=== PATIENT | male | born 2000 | race Caucasian/White ===

== ENCOUNTER 2021-12-05 19:28 | Emergency (ER) | payer BC ==
[2021-12-05 19:48] VITALS: O2SAT 98
--- NOTE | 2021-12-05 20:35 | ERPHSYRPT ---
- History of Present Illness Time Seen by Provider: 12/05/21 19:38 Source: patient Exam Limitations: no limitations Patient Subjective Stated Complaint: pt [place] and the board flew up and hit him in the head. Triage Nursing Assessment: pt is alert and oriented and states he has a pain level of 2/10. pt has a laceration on back of head. Physician History: 31-year-old male presented in the ER with chief complaint of laceration scalp/head injury after he was in a water sport and board flew off and hit his head. No loss of consciousness. Complaining of dull aching headache in the occipital area and feels a little dizzy and lightheaded. No ENT bleed. No neck pain. No injury anywhere else. Up-to-date with tetanus. Occurred: just prior to arrival Severity: moderate Head Injury Location: occipital Method of Injury: other Loss of Consciousness: no loss of consciousness Associated Symptoms: headaches Allergies/Adverse Reactions: No Known Drug Allergies Allergy (Unverified 12/05/21 19:48) Immunizations Up to Date: Yes Travel Risk - International Travel Have you traveled outside of the country in past 3 weeks: No - Coronavirus Screening Are you exhibiting any of the following symptoms?: No Symptoms: Fever - Vaccine Status Have you recieved a Covid-19 vaccination: No - Review of Systems Constitutional: No Symptoms Eyes: No Symptoms Ears, Nose, & Throat: No Symptoms Respiratory: No Symptoms Cardiac: No Symptoms Abdominal/Gastrointestinal: No Symptoms Musculoskeletal: Injury Skin: Skin Lesions Neurological: Headache Psychological: No Symptoms Endocrine: No Symptoms Hematologic/Lymphatic: No Symptoms Immunological/Allergic: No Symptoms - Past Medical History Pertinent Past Medical History: No - Past Surgical History Past Surgical History: Yes Other Surgical History: knee surgery - Social History Smoking Status: Current every day smoker Drug Use: marijuana - Nursing Vital Signs Nursing Vital Signs: Initial Vital Signs Temperature 98.0 F 12/05/21 19:34 Pulse Rate 85 12/05/21 19:34 Respiratory Rate 18 12/05/21 19:34 Blood Pressure 116/65 12/05/21 19:34 O2 Sat by Pulse Oximetry 98 12/05/21 19:34 Pain Scale Pain Intensity 2 - Yrn Coma Score Best Eye Response (Yrn): (4) open spontaneously Best Verbal Response (Ward): (5) oriented Best Motor Response (Ward): (6) obeys commands Yrn Total: 15 - Physical Exam General Appearance: no apparent distress, alert Head Injury: lacerations (V-shaped laceration 2.5 cm in the right occipital parietal area.), swelling, tenderness Eye Exam: bilateral eye: normal inspection, PERRL, EOMI ENT Exam: airway nml, No evidence of ENT injury Neck Exam: supple, trachea midline, full range of motion, normal alignment, normal inspection, No focal neuro deficit, No muscle spasm, No paraspinous muscle tender Cardiovascular/Respiratory Exam: chest non-tender, normal breath sounds, regular rate/rhythm Back Exam: normal inspection, normal range of motion Extremity Exam: non-tender, normal range of motion, normal inspection, normal capillary refill Mental Status Exam: alert, oriented x 3, 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 Exam: normal hearing, normal speech, PERRL Coordination/Gait Exam: normal finger to nose, normal gait, normal cerebellar function Motor/Sensory Exam: no motor deficit, no sensory deficit, no pronator drift, negative Babinski's sign Skin Exam: normal color SpO2 Interpretation: normal SpO2: 98 O2 Delivery: Room Air Procedures - Laceration/Wound Repair Occipital Time of Procedure: 20:38 Wound Location: head Wound Length (cm): 2.5 Wound's Depth, Shape: irregular Wound Explored: clean Irrigated: Yes Hibiclens Prep: Yes Wound Repaired With: [place] Number of Sutures: 3 Ordered Tests: Active Orders 24 hr Category Date Time Status HEAD WITHOUT CONTRAST [CT] Stat Exams 12/05/21 20:11 Taken - Progress Progress: improved, re-examined Progress Note: 12/05/21 20:39 Does not want anything for pain. CT head is negative. Laceration is repaired with stapler. Outpatient follow-up recommended. Discussed signs symptoms of worsening/head injury needing return to ER which he seems understanding. Counseled pt/family regarding: diagnosis, need for follow-up, rad results - Departure Departure Disposition: Home Clinical Impression: Occipital scalp laceration Condition: Stable Critical Care Time: No Referrals: DOCTOR,NO FAMILY [Primary Care Provider] - Follow up/PCP as directed MARYAM GILLIS DO [ACTIVE STAFF] - Follow Up with PCP/3 days Instructions: Closed Head Injury (DC) Additional Instructions: Take Tylenol as needed for pain. Keep it clean. Follow head injury instructions and return to ER for any worsening.
[2021-12-05 20:51] VITALS: BP 123/68; PULSE 78
--- NOTE | 2021-12-06 08:38 | XRAY ---
Indication: Headache. Posterior head injury. Multiple contiguous axial images obtained through the head without contrast. Comparison: None Normal appearing brain parenchyma, ventricles, and bony calvarium. Visualized paranasal sinuses and mastoid air cells are clear. Impression: Normal CT head without contrast exam.
== END 2021-12-05 21:00 | disposition home or self-care (01) ==
LOC: ED 19:28
DX: S01.01XA Laceration without foreign body of scalp, initial encounter (principal); W20.8XXA Other cause of strike by thrown, projected or falling object, initial encounter; Y93.19 Activity, other involving water and watercraft; Y92.828 Other wilderness area as the place of occurrence of the external cause; R51.9 Headache, unspecified; R42 Dizziness and giddiness; Z72.0 Tobacco use; Z28.310 Unvaccinated for COVID-19
CPT/HCPCS: 12001; 70450; 99283